=== PATIENT | female | born 1960 | race Caucasian/White ===

== ENCOUNTER 2021-03-03 18:12 | Emergency (ER) | payer BC ==
[2021-03-03 19:03] VITALS: BP 142/78; PULSE 87
[2021-03-03] MEDS ORDERED: Bacitracin Oint 1 GM U/D Packet TOP ONE (19:12)
[2021-03-03] MEDS ORDERED: Lidocaine 1% 30 ML SDV INJECT ONE (19:12)
[2021-03-03] MEDS ORDERED: Cephalexin 500 MG Cap PO ONE (19:37)
--- NOTE | 2021-03-03 19:42 | EDM.PDOC ---
ED HPI GENERAL MEDICAL PROBLEM - General Chief Complaint: Lower Extremity Injury/Pain Stated Complaint: LARGE SLIVER INFOOT Time Seen by Provider: 03/03/21 19:00 Source of Information: Reports: Patient History Limitations: Reports: No Limitations - History of Present Illness INITIAL COMMENTS - FREE TEXT/NARRATIVE: walking barefoot on deck large sliver bottom of left foot. unable to get out at home. [place] current Left Foot Pain Score (Numeric/FACES): 5 - Related Data Allergies Allergy/AdvReac Type Severity Reaction Status Date / Time amoxicillin trihydrate Allergy Rash Verified 03/03/21 19:07 [From Augmentin] potassium clavulanate Allergy Rash Verified 03/03/21 19:07 [From Augmentin] Tetracyclines Allergy Rash Unverified 03/03/21 19:07 Home Meds: Home Meds Calcium Carbonate/Vitamin D3 [Calcium-Vitamin D] 1 tab PO BID 03/26/14 [History] Cholecalciferol (Vitamin D3) [Vitamin D3] 1 tab PO DAILY 03/26/14 [History] Cyanocobalamin (Vitamin B-12) [Vitamin B-12] 1 tab PO DAILY 03/26/14 [History] Lactobacillus Acidophilus [Probiotic] 1 tab PO DAILY 03/26/14 [History] Multivitamin [Multi-Vitamin Daily] 1 tab PO DAILY 03/26/14 [History] Social & Family History - Tobacco Use Tobacco Use Status *Q: Never Tobacco User Second Hand Smoke Exposure: No - Caffeine Use Caffeine Use: Reports: Coffee - Recreational Drug Use Recreational Drug Use: No Review of Systems - Review of Systems Review Of Systems: Comprehensive ROS is negative, except as noted in HPI. ED EXAM, GENERAL - Physical Exam Exam: See Below Exam Limited By: No Limitations General Appearance: Alert, Mild Distress Eye Exam: Bilateral Eye: EOMI Ears: Normal External Exam Nose: No: Nasal Drainage Throat/Mouth: Normal Voice, No Airway Compromise Head: Atraumatic, Normocephalic Neck: Full Range of Motion Respiratory/Chest: No Respiratory Distress, Normal Breath Sounds Cardiovascular: Normal Peripheral Pulses, Regular Rate, Rhythm Neurological: Alert, Oriented, Normal Cognition Psychiatric: Normal Affect, Normal Mood Skin Exam: Warm, Dry, Wound/Incision (Foreign body large wood sliver plantar surface left distal mid forefoot) ED TRAUMA EXTREMITY PROCEDURES - Foreign Body Removal Consent Obtained: Patient Performing Doctor:: Mariela Triplett Foreign Body Other Location Comment:: left mid forefoot Anesthesia Type: Local (1% lidocaine 2cc) Findings:: Wound cleansed saline and chlorhexadine less than 2mm extension vertically over sliver allowing to grasp with forecep . Extracted intact. Patient tolerated well Bacitracin bandage dressing applied by RN. Complications:: No Course - Vital Signs Last Recorded V/S: Last Vital Signs Temp 98.7 F 03/03/21 19:02 Pulse 87 03/03/21 19:02 Resp 18 03/03/21 19:02 BP 142/78 H 03/03/21 19:02 Pulse Ox 99 03/03/21 19:02 - Orders/Labs/Meds Meds: Medications Discontinued Medications Generic Name Dose Route Start Last Admin Trade Name Daniloq PRN Reason Stop Dose Admin Bacitracin 1 dose 03/03/21 19:12 03/03/21 19:45 Bacitracin Oint 1 Gm U/D Packet TOP 03/03/21 19:13 1 dose ONETIME ONE Administration Cephalexin 500 mg 03/03/21 19:37 03/03/21 19:45 Cephalexin 500 Mg Cap PO 03/03/21 19:38 500 mg ONETIME ONE Administration Lidocaine HCl 30 ml 03/03/21 19:12 03/03/21 19:45 Lidocaine 1% 30 Ml Sdv INJECT 03/03/21 19:13 30 ml ONETIME ONE Administration Departure - Departure Time of Disposition: 19:40 Disposition: Home, Self-Care 01 Condition: Good Clinical Impression: Foreign body in left foot Qualifiers: Encounter type: initial encounter Qualified Code(s): S90.852A - Superficial foreign body, left foot, initial encounter - Discharge Information *PRESCRIPTION DRUG MONITORING PROGRAM REVIEWED*: No *COPY OF PRESCRIPTION DRUG MONITORING REPORT IN PATIENT LU: No Instructions: Sliver Removal, Care After Forms: ED Department Discharge Additional Instructions: keep clean warm soapy soaks twice daily antibiotic ointment and dressing keflex 500mg 3 times daily for one week follow up if redness swelling or and streaking Sepsis Event Note (ED) - Evaluation Sepsis Screening Result: No Definite Risk - Focused Exam Vital Signs: Vital Signs Temp Pulse Resp BP Pulse Ox 03/03/21 19:02 98.7 F 87 18 142/78 H 99
== END 2021-03-03 19:48 | disposition home or self-care (01) ==
LOC: DL.ED 18:12
DX: S90.852A Superficial foreign body, left foot, initial encounter (principal); Z88.0 Allergy status to penicillin; Z88.1 Allergy status to other antibiotic agents; W45.8XXA Other foreign body or object entering through skin, initial encounter; Y93.01 Activity, walking, marching and hiking
CPT/HCPCS: 28190; 99283; A9270

== ENCOUNTER 2024-06-25 06:28 | Day surgery (SDC) | payer BC ==
[2024-06-25] MEDS: Dextrose 5%-0.45% NaCl 1,000 ML IV SCH (06:44)
[2024-06-25] MEDS ORDERED: Midazolam 1 MG/ML 2 ML SDV IV ONE (07:08)
[2024-06-25] MEDS ORDERED: fentaNYL 100 MCG/2 ML SDV IV ONE (07:08)
[2024-06-25] MEDS ORDERED: fentaNYL 100 MCG/2 ML SDV ONE (07:08)
[2024-06-25] MEDS ORDERED: Midazolam 1 MG/ML 2 ML SDV ONE (07:08)
[2024-06-25] MEDS: fentaNYL 100 MCG/2 ML SDV IV ONE ×5 (07:15→07:25)
[2024-06-25] MEDS: Midazolam 1 MG/ML 2 ML SDV IV ONE ×6 (07:16→07:22)
[2024-06-25 08:47] VITALS: BP 105/64; PULSE 60
== END 2024-06-25 08:51 | disposition home or self-care (01) ==
LOC: DL.ENDO 06:28
PROVIDERS: ATTEND Internal Medicine Gastroenterology
DX: Z12.11 Encounter for screening for malignant neoplasm of colon (principal); K64.4 Residual hemorrhoidal skin tags; K64.8 Other hemorrhoids; Z88.0 Allergy status to penicillin
CPT/HCPCS: 45378; J2250; J3010; J7799